=== PATIENT | female | born 1975 | race Caucasian/White ===

== ENCOUNTER 2021-03-21 21:22 | Emergency (ER) | payer MEDICAID, SELFPAY ==
[2021-03-21 23:21] VITALS: BP 136/80; PULSE 99; RESP 16; TEMP 37.4; O2SAT 100; BMI 34.7
[2021-03-22 00:05] LABS: COVID-19 Test Positive (Negative)
--- NOTE | 2021-03-22 00:23 | ED_ITS ---
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 Patient is not vaccinated against COVID. Not aware of recent exposure to sick contacts. Related Data Allergies Allergy/AdvReac Type Severity Reaction Status Date / Time No Known Allergies Allergy Verified 03/21/21 23:27 Review of Systems Review of Systems: All other systems are reviewed and are negative Constitutional: Reports as per HPI and Reports no additional constitutional complaints Eyes: Reports as per HPI and Reports no additional eye complaints Reports system reviewed and no additional complaints, except as documented Cardiovascular: Reports as per HPI and Reports no additional cardiovascular complaints Respiratory: Reports as per HPI and Reports no additional respiratory complaints Gastrointestinal: Reports as per HPI and Reports no additional gastrointestinal complaints Genitourinary: Reports no additional female genitourinary complaints Musculoskeletal: Reports no additional musculoskeletal complaints Skin/Breast: Reports system reviewed and no additional complaints, except as docu Psychiatric: Reports no additional psychiatric complaints Endocrine: Reports no additional endocrine complaints Hematologic/Lymphatic: Reports no additional hematologic/lymphatic complaints Allergic/Immunologic: Reports no additional allergic/immunologic complaints Reports system reviewed and no additional complaints, except as documented and Reports Abnormal speech present [facility] Social History Social History Advance Directives: No Advance Directives Information Provided: No Physical Exam Vital Signs: Vital Signs: Last Vital Signs Temp 99.4 F 03/21/21 23:21 Pulse 99 03/21/21 23:21 Resp 16 03/21/21 23:21 BP 136/80 03/21/21 23:21 Pulse Ox 100 03/21/21 23:21 Body Mass Index 34.7 Vital signs have been reviewed as appeared to be correct. Blood pressure no rmal. Heart rate normal. Respiration rate normal. Temperature normal. Oxygen saturation normal. Appearance: Alert. Oriented X3. No acute distress. Head: Normal external exam. Normocephalic. Atraumatic. No Palmer signs noted. No raccoon eyes noted Eyes: PERRLA. EOMI. Conjunctiva and sclera normal. Eyelids normal. ENT: TM's Normal. Pharynx normal. Uvula midline. Moist mucous membranes. No trismus noted. No drooling noted. No muffled voice noted. Neck: Normal inspection. Neck supple. FROM. No adenopathy. Thyroid Normal. No meningeal signs. No neck mass noted. CVS: Normal heart rate and rhythm. Heart sound normal. No murmurs noted. Pulses normal throughout. Respiratory: No respiratory distress. Painless inspiration. Breath sounds normal. No wheezes/rales/rhonchi noted. Chest nontender. No accessory muscle usage noted or decreased air movement noted. Abdomen: Soft and nontender. Bowel sounds normal in all 4 quadrants. No distention noted. No organomegaly noted. No visible injury noted. Back: No CVA tenderness. Full range of motion noted. Skin: Skin warm and dry. Normal skin color. Normal skin turgor. No rashes/lesions/lacerations noted. Extremities: No lower extremity edema. Extremities exhibit normal range of motion. Extremities nontender. Neuro: Oriented X 3. Cranial nerve exam: II-XII are grossly intact No motor deficit. No sensory deficit. Reflexes normal. Course Course Course Narrative: COVID pneumonia, patient to self quarantine home for the next 2 weeks. Patient with stable vital signs, maintaining normal breathing rate and oxygenation. MDM - URI/Sore Throat Lab Data Attestation: I reviewed the patient's lab results. Labs: Lab Results 03/21/21 Range/Units 23:39 COVID-19 ([facility]) Positive A (Negative) COVID-19 Clin Com See Note Discharge Plan Discharge Clinical Impression: Pneumonia due to COVID-19 virus Patient Disposition: Home, Self-Care Instructions: COVID-19 (Coronavirus Disease 2019) (ED) Additional Instructions: Self-isolation and quarantine at home for 2 weeks, return if worsening of the breathing. Referrals: [facility] [Primary Care Provider] - 2 days Interventions: ED Discharge Assessment Last Done: 03/22/21 00:38
== END 2021-03-22 00:44 | disposition home or self-care (01) ==
PROVIDERS: Emergency Provider Emergency Medicine
DX: U07.1 COVID-19 (principal)
CPT/HCPCS: 36415; 87635; 99283

== ENCOUNTER 2021-03-29 22:10 | Emergency (ER) | payer MEDICAID, SELFPAY ==
[2021-03-29 22:31] VITALS: BP 139/85; PULSE 96; RESP 18; TEMP 37; O2SAT 98; BMI 34.7
[2021-03-29 23:39] LABS: Influenza A PCR NEGATIVE (Negative); Influenza B PCR NEGATIVE (Negative); Resp Syncy Virus RNA Qual PCR NEGATIVE (Negative)
[2021-03-29 23:43] LABS: SARS COV2 PCR INHOUSE POSITIVE (Negative)
--- NOTE | 2021-03-30 00:30 | ED_ITS ---
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 But denies fever, chills and has not had COVID-19 vaccine. Related Data Allergies Allergy/AdvReac Type Severity Reaction Status Date / Time No Known Allergies Allergy Verified 03/29/21 22:31 Review of Systems Review of Systems: Pertinent positives and negatives as stated in HPI 10 point review of systems is otherwise negative. [facility] Past Medical History Source: nursing notes reviewed Social History Social History Advance Directives: No Advance Directives Information Provided: No Physical Exam Vital Signs: Vital Signs: Last Vital Signs Temp 98.6 F 03/29/21 22:31 Pulse 96 03/29/21 22:31 Resp 18 03/29/21 22:31 BP 139/85 03/29/21 22:31 Pulse Ox 98 03/29/21 22:31 Body Mass Index 34.7 VITAL SIGNS: Reviewed. GENERAL: Well developed, well nourished, in no acute distress. HEAD: Normocephalic/atraumatic EYES: PERRLA, EOMI OROPHARYNX: no oral lesions noted, posterior pharynx clear but erythematous without noted tonsillar enlargement/erythema/exudates NECK: Supple, no adenopathy LUNGS: Normal breath sounds. No adventitious sounds or accessory muscle use. SpO2<98> CARDIOVASCULAR: Regular rate and rhythm without noted murmurs ABDOMEN: Soft, non-tender, non-distended with bowel sounds NEUROLOGIC: Alert and oriented x 4. Course Course Course Narrative: 45-year-old female with history and clinical presentation of viral symptoms and on review of all investigations patient is noted be COVID-19 positive. Patient was informed of all results and the necessity to quarantine. She has no complaints of shortness of breath and is not noted to be hypoxic. MDM - URI/Sore Throat Lab Data Labs: Lab Results 03/29/21 Range/Units 22:38 Coronavirus (PCR) POSITIVE A (Negative) Influenza Type A (PCR) NEGATIVE (Negative) Influenza Type B (PCR) NEGATIVE (Negative) RSV RNA Qual (PCR) NEGATIVE (Negative) Discharge Plan Discharge Clinical Impression: Lab test positive for detection of COVID-19 virus, Viral syndrome Patient Disposition: Home, Self-Care Instructions: COVID-19 (Coronavirus Disease 2019) (ED), Viral Syndrome (ED) Additional Instructions: 1. Tylenol 1000 mg, por v?a oral, cada 6 horas seg?n sea necesario para los ovidio corporales o temperaturas superiores a 100,4?C. No exceda los 4000 mg en 24 horas. 2. Ibuprofeno 400 mg, por v?a oral con leche o alimentos, cada 6 horas seg?n sea necesario para los ovidio corporales o temperaturas superiores a 100,4?C. 3. Debe permanecer en cuarentena anastacia 14 d?as y seguir todas las pautas estatales y federales para la positividad de COVID-19. 4. Maria Elena un seguimiento con zuñiga proveedor de atenci?n primaria el lunes por la ma?gabe y programe jona wendy de telemedicina para jona reevaluaci?n. Regrese a la penelope de emergencias si shashi s?ntomas empeoran de manera aguda. Referrals: Physician,None [Primary Care Provider] - 2 days Print Language: Citizen [place]
== END 2021-03-30 01:05 | disposition home or self-care (01) ==
PROVIDERS: Emergency Provider Student in an Organized Health Care Education/Training Program
DX: U07.1 COVID-19 (principal); B34.9 Viral infection, unspecified
CPT/HCPCS: 0241U; 36415; 99282; 99283

== ENCOUNTER 2021-04-12 14:47 | Outpatient (REF) | payer MEDICAID, SELFPAY | END 2021-04-12 14:48 | disposition home or self-care (01) | LOC: HO.LAB 14:47 | PROVIDERS: Visit Provider Internal Medicine | DX: Z20.822 Contact with and (suspected) exposure to COVID-19 (principal) | CPT/HCPCS: C9803; U0003; U0005 ==